=== PATIENT | female | born 1985 | race Caucasian/White ===

== ENCOUNTER → 2017-07-03 | Outpatient (CLI) | payer BC | END | disposition home or self-care (01) | LOC: LABWHC1 12:13 | PROVIDERS: ATTEND Obstetrics & Gynecology | DX: O03.9 Complete or unspecified spontaneous abortion without complication (principal) | CPT/HCPCS: 36415; 84702 ==

== ENCOUNTER → 2017-08-29 | Outpatient (CLI) | payer BC | END | disposition home or self-care (01) | LOC: LABWHC1 17:21 | PROVIDERS: ATTEND Obstetrics & Gynecology | DX: N92.6 Irregular menstruation, unspecified (principal) | CPT/HCPCS: 36415; 84702 ==

== ENCOUNTER → 2017-09-25 | Outpatient (CLI) | payer BC | END | disposition home or self-care (01) | LOC: LABWHC1 11:16 | PROVIDERS: ATTEND Obstetrics & Gynecology | DX: Z34.80 Encounter for supervision of other normal pregnancy, unspecified trimester (principal); Z3A.00 Weeks of gestation of pregnancy not specified | CPT/HCPCS: 36415; 84702 ==

== ENCOUNTER → 2017-09-27 | Outpatient (CLI) | payer BC | END | disposition home or self-care (01) | LOC: LABWHC1 10:20 | PROVIDERS: ATTEND Obstetrics & Gynecology | DX: Z34.80 Encounter for supervision of other normal pregnancy, unspecified trimester (principal); Z3A.00 Weeks of gestation of pregnancy not specified | CPT/HCPCS: 36415; 84702 ==

== ENCOUNTER → 2017-10-01 | Outpatient (CLI) | payer BC | LOC: LABWHC1 09:42 | PROVIDERS: ATTEND Obstetrics & Gynecology | DX: Z34.80 Encounter for supervision of other normal pregnancy, unspecified trimester (principal) | CPT/HCPCS: 36415; 84702 ==

== ENCOUNTER → 2017-11-19 | Outpatient (CLI) | payer BC ==
[2017-11-19 11:16] LABS: HCT 42.9 % (34.0-46.0); HGB 14.5 gm/dL (11.4-16.0); MCH 30.4 pg (25.0-35.0); MCHC 33.8 g/dL (31.0-37.0); MCV 89.8 fL (80.0-100.0); Mean Platelet Volume 7.4; Platelet Count 285 k/uL (150-450); RBC 4.78 m/uL (3.80-5.40); RDW 12.1 % (11.5-15.5); WBC 11.7 k/uL (3.8-10.6)
[2017-11-19 11:34] LABS: T4, Free (Free Thyroxine) 0.9 ng/dL (0.78-2.19)
[2017-11-19 17:17] LABS: Progesterone 10.6 ng/mL; T3, Uptake 36 % (23-37)
[2017-11-19 17:42] LABS: Cardiolipin Ab IgG Interp NEGATIVE (NEGATIVE); Cardiolipin Ab IgM Interp NEGATIVE (NEGATIVE); Cardiolipin IgA Antibody 2.3 U/mL; Cardiolipin IgM Antibody 2.9 U/mL
[2017-11-19 18:31] LABS: Hemoglobin A1C 4.8 % (4.0-6.0)
[2017-11-20 13:34] LABS: APTT 43 Sec(s) (<43); Dilute Russell Viper Venom 42 Sec(s) (<44)
== END | disposition home or self-care (01) ==
LOC: LABWHC1 10:32
PROVIDERS: ATTEND Obstetrics & Gynecology
DX: N96 Recurrent pregnancy loss (principal)
CPT/HCPCS: 36415; 81241; 82947; 83036; 84144; 84439; 84443; 84479; 85027; 85613; 85730; 86038; 86146; 86147

== ENCOUNTER → 2017-11-26 | Outpatient (CLI) | payer BC | END | disposition home or self-care (01) | LOC: LABWHC1 10:40 | PROVIDERS: ATTEND Obstetrics & Gynecology | DX: Z34.80 Encounter for supervision of other normal pregnancy, unspecified trimester (principal) | CPT/HCPCS: 36415; 84702 ==

== ENCOUNTER → 2017-11-28 | Outpatient (CLI) | payer BC | END | disposition home or self-care (01) | LOC: LABWHC1 15:21 | PROVIDERS: ATTEND Obstetrics & Gynecology | DX: Z34.80 Encounter for supervision of other normal pregnancy, unspecified trimester (principal) | CPT/HCPCS: 36415; 84702 ==

== ENCOUNTER → 2017-12-11 | Outpatient (CLI) | payer BC ==
--- NOTE | 2017-12-11 10:52 | US ---
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 : 9 Para:4 AB:5. 5 miscarriages within the las t 8 months per patient. Miscarriage last week per patient. TECHNIQUE: . Transvaginal sonographic images of the pelvis were acquired. Date of LMP: Unknown EXAM MEASUREMENTS: Uterus: 10.0 x 4.3 x 5.1 cm Endometrial Stripe: 1.1 cm Right Ovary: 2.8 x 1.7 x 2.7 cm Left Ovary: 4.1 x 2.1 x 3.8 cm 1. Uterus: Anteverted wnl 2. Endometrium: wnl 3. Right Ovary: wnl 4. Left Ovary: Follicle visualized measuring 1.6 x 1.6 x 1.8 cm 5. Bilateral Adnexa: wnl 6. Posterior cul-de-sac: wnl IMPRESSION: 1. Probable functional left ovarian cyst. Consider follow-up study in 6 weeks if felt clinically missy cated.
== END | disposition home or self-care (01) ==
LOC: RADUSWWP 10:05
PROVIDERS: ATTEND Obstetrics & Gynecology
DX: Z09 Encounter for follow-up examination after completed treatment for conditions other than malignant neoplasm (principal); Z84.89 Family history of other specified conditions
CPT/HCPCS: 76830

== ENCOUNTER → 2017-12-26 | Outpatient (CLI) | payer BC | END | disposition home or self-care (01) | LOC: LABWHC1 15:28 | PROVIDERS: ATTEND Obstetrics & Gynecology | DX: Z34.81 Encounter for supervision of other normal pregnancy, first trimester (principal) | CPT/HCPCS: 36415; 84702 ==

== ENCOUNTER → 2017-12-28 | Outpatient (CLI) | payer BC | END | disposition home or self-care (01) | LOC: LABWHC1 11:12 | PROVIDERS: ATTEND Obstetrics & Gynecology | DX: Z34.81 Encounter for supervision of other normal pregnancy, first trimester (principal); Z3A.00 Weeks of gestation of pregnancy not specified | CPT/HCPCS: 36415; 84702 ==

== ENCOUNTER → 2018-01-14 | Outpatient (CLI) | payer BC | LOC: LABWHC1 17:06 | PROVIDERS: ATTEND Obstetrics & Gynecology | DX: Z34.80 Encounter for supervision of other normal pregnancy, unspecified trimester (principal); Z3A.00 Weeks of gestation of pregnancy not specified | CPT/HCPCS: 36415; 84702 ==

== ENCOUNTER → 2018-04-15 | Outpatient (CLI) | payer BC | END | disposition home or self-care (01) | LOC: LABWHC1 10:19 | PROVIDERS: ATTEND Obstetrics & Gynecology | DX: Z34.80 Encounter for supervision of other normal pregnancy, unspecified trimester (principal) | CPT/HCPCS: 36415; 84702 ==

== ENCOUNTER → 2018-04-17 | Outpatient (CLI) | payer BC | LOC: LABWHC1 09:59 | PROVIDERS: ATTEND Obstetrics & Gynecology | DX: O26.819 Pregnancy related exhaustion and fatigue, unspecified trimester (principal); Z3A.00 Weeks of gestation of pregnancy not specified | CPT/HCPCS: 36415; 84702 ==

== ENCOUNTER → 2018-05-01 | Outpatient (CLI) | payer BC | END | disposition home or self-care (01) | LOC: LABWHC1 16:16 | PROVIDERS: ATTEND Obstetrics & Gynecology | DX: O02.1 Missed abortion (principal); Z3A.00 Weeks of gestation of pregnancy not specified | CPT/HCPCS: 36415; 84702 ==

== ENCOUNTER → 2018-05-08 | Outpatient (CLI) | payer BC | END | disposition home or self-care (01) | LOC: LABWHC1 09:54 | PROVIDERS: ATTEND Obstetrics & Gynecology | DX: O03.9 Complete or unspecified spontaneous abortion without complication (principal) | CPT/HCPCS: 36415; 84702 ==

== ENCOUNTER → 2018-05-15 | Outpatient (CLI) | payer BC | END | disposition home or self-care (01) | LOC: LABWHC1 13:09 | PROVIDERS: ATTEND Obstetrics & Gynecology | DX: O03.9 Complete or unspecified spontaneous abortion without complication (principal) | CPT/HCPCS: 36415; 84702 ==

== ENCOUNTER → 2018-07-05 | Outpatient (CLI) | payer BC ==
[2018-07-05 20:04] LABS: Hemoglobin A1C 4.9 % (4.0-6.0)
[2018-07-05 20:18] LABS: ALT 29 U/L (8-44); AST 31 U/L (13-35); Glucose 91 mg/dL (70-110)
[2018-07-05 20:21] LABS: Thyroid Peroxidase Antibodies 31.3 U/mL (0.0-60.0); Vitamin D 25 Hydroxy 17.6 ng/mL (30.0-100.0)
[2018-07-05 20:27] LABS: HCG,Quantitative Serum <2.0 mIU/mL
[2018-07-05 20:32] LABS: Insulin Level 13.7 mIU/mL (3.0-25.0)
[2018-07-05 21:01] LABS: Cardiolipin Ab IgG Interp NEGATIVE (NEGATIVE); Cardiolipin Ab IgM Interp NEGATIVE (NEGATIVE); Cardiolipin IgA Antibody 2.4 U/mL
[2018-07-08 04:04] LABS: Varicella IgM Antibody 0.26 INDEX (<=0.90)
[2018-07-08 11:11] LABS: APTT 40 Sec(s) (<43); Anti-Thrombin III Antigen 117 % (80 - 120); Dilute Russell Viper Venom 38 Sec(s) (<44); Protein S Antigen 100 % (50 - 140)
[2018-07-08 17:29] LABS: Anti-Mullerian Hormone 3.99 ng/mL (0.36 - 10.07)
[2018-07-09 01:38] LABS: Testosterone, Free, LC/MS/MS 2.5 pg/mL (0.2-5.0); Testosterone, Total, LC/MS/MS 21 ng/dL (2-45)
[2018-07-09 08:46] LABS: Protein C Antigen 145 % (72-160)
[2018-07-09 11:41] LABS: Act Protein C Resist Interp NEGATIVE; Activated Protein C Resistance 5.84 (1.60-4.90); Anti-Thrombin III Activity 116 % (79-109); Protein C (Activity) 143 % (71-138)
== END | disposition home or self-care (01) ==
LOC: LABWHC1 10:01
PROVIDERS: ATTEND Physician Assistant
DX: N96 Recurrent pregnancy loss (principal)
CPT/HCPCS: 36415; 81240; 81241; 81291; 82040; 82306; 82397; 82670; 82947; 83001; 83002; 83036; 83090; 83525; 84146; 84270; 84403; 84439; 84443; 84450; 84460; 84481; 84702; 85300; 85301; 85302; 85303; 85305; 85306; 85307; 85613; 85730; 86146; 86147; 86376; 86762; 86787; 86800; 86850; 86900; 86901

== ENCOUNTER → 2018-08-26 | Outpatient (CLI) | payer BC | LOC: LABWHC1 15:09 | PROVIDERS: ATTEND Obstetrics & Gynecology Reproductive Endocrinology | DX: N97.9 Female infertility, unspecified (principal) | CPT/HCPCS: 36415; 84144 ==

== ENCOUNTER → 2018-08-28 | Outpatient (CLI) | payer BC | LOC: LABWHC1 10:23 | PROVIDERS: ATTEND Obstetrics & Gynecology Reproductive Endocrinology | DX: Z32.00 Encounter for pregnancy test, result unknown (principal) | CPT/HCPCS: 36415; 84702 ==

== ENCOUNTER 2019-02-19 14:17 | Outpatient (CLI) | payer BC ==
[2019-02-19 14:47] LABS: Glucose,Whole Blood 91 mg/dL (75-99)
[2019-02-19 15:12] VITALS: BP 126/58; PULSE 101; RESP 18; TEMP 98.3
--- NOTE | 2019-03-18 08:22 | P.MSEPDOC ---
Presenting Problems - Arrival Data Date of Arrival on Unit: 02/19/19 Time of Arrival on Unit: 14:30 Mode of Transport: Ambulatory - Complaint OB-Reason for Admission/Chief Complaint: Other Comment: pelvic pain, white discharge, decreased movement Medical History - Information : 5 Para: 4 Term: 4 : 0 Abortions: Spontaneous or Elective: 0 Number of Living Children: 4 - Gestational Age Gestational Age by IRIS (wks/days): 28 Weeks and 4 Days - History Complications: GDM, Smoker Comment: on insulin at dinner and bedtime Review of Systems - Review of Systems Constitutional: No problems Breast: No problems ENT: No problems Cardiovascular: No problems Respiratory: No problems Gastrointestinal: No problems Genitourinary: No problems Musculoskeletal: No problems Neurological: No problems Skin: No problems Vital Signs - Temperature Temperature: 98.3 F Temperature Source: Oral - Pulse Right Sitting Brachial Pulse Rate: 101 Pulse Assessment Method: Automatic Cuff - Respirations Respiratory Rate: 18 Oxygen Delivery Method: Room Air O2 Sat by Pulse Oximetry: 95 - Blood Pressure Right Arm Sitting Blood Pressure: 126/58 Blood Pressure Mean: 80 Blood Pressure Source: Automatic Cuff Medical Screen Scoring (Pre) - Cervical Exam Dilation: 0 cm = 0 - Uterine Contractions Frequency: N/A Duration: N/A Intensity: N/A - Maternal Vital Signs Maternal Temperature: N/A Maternal Blood Pressure: N/A Signs of Preeclampsia: N/A Maternal Respirations: N/A - Maternal Trauma Maternal Trauma: N/A - Assessment - Baby A Baseline FHR: 135 Heart Rate - NICHD Category: Category I (Normal) = 0 NST: Reactive Position: N/A Station: N/A - Total Score - Baby A Total Score - Baby A: 0 - Total Score - Baby B Total Score - Baby B: 0 - Total Score - Baby C Total Score - Baby C: 0 - Level of Risk - Baby A Level of Risk - Baby A: Low (0-5) - Level of Risk - Baby B Level of Risk - Baby B: Low (0-5) - Level of Risk - Baby C Level of Risk - Baby C: Low (0-5) Physician Notification (Pre) - Physician Notified Physician Notified Date: 02/19/19 Physician Notified Time: 15:12 Physician/Practitioner Notifed:: Dr Nielsen Spoke With: Dr Nielsen - Notification Comment Comment: reactive NST, cx closed, + movement. Dc home. follow up with dr akers/luis carlos as scheduled. Disposition - Disposition OB Disposition: Discharge to home Discharge Date: 02/19/19 Discharge Time: 15:12 I agree with the RN Medical Screening Exam: Yes Risk & Benefit of care provided described in d/c instruction: Yes Diagnosis: RELATED CONDITIONS, UNSPECIFIED, THIRD TRIMESTER
== END 2019-02-19 15:13 | disposition home or self-care (01) ==
LOC: FBPOP 14:17
PROVIDERS: ATTEND Obstetrics & Gynecology
DX: O26.93 Pregnancy related conditions, unspecified, third trimester (principal); Z3A.28 28 weeks gestation of pregnancy
CPT/HCPCS: 59025; 99213

== ENCOUNTER 2019-04-06 18:17 | Outpatient (CLI) | payer BC ==
[2019-04-06 19:08] VITALS: BP 127/64; PULSE 113; RESP 18; TEMP 97.9
--- NOTE | 2019-04-07 06:26 | P.MSEPDOC ---
Presenting Problems - Arrival Data Date of Arrival on Unit: 04/06/19 Time of Arrival on Unit: 18:20 Mode of Transport: Ambulatory - Complaint OB-Reason for Admission/Chief Complaint: Possible Onset of Labor, Acute Nausea/Vomiting Medical History - Information : 12 Para: 4 Term: 4 : 0 Abortions: Spontaneous or Elective: 7 Number of Living Children: 4 - Gestational Age Gestational Age by IRIS (wks/days): 35 Weeks and 1 Days - History Complications: GDM Review of Systems - Review of Systems Constitutional: No problems Breast: No problems ENT: No problems Cardiovascular: No problems Respiratory: No problems Gastrointestinal: No problems Genitourinary: No problems Musculoskeletal: No problems Neurological: No problems Skin: No problems Vital Signs - Temperature Temperature: 97.9 F Temperature Source: Temporal Artery Scan - Pulse Right Brachial Pulse Rate: 113 Pulse Assessment Method: Automatic Cuff - Respirations Respiratory Rate: 18 Oxygen Delivery Method: Room Air O2 Sat by Pulse Oximetry: 98 - Blood Pressure Right Arm Sitting Blood Pressure: 127/64 Blood Pressure Mean: 85 Blood Pressure Source: Automatic Cuff Medical Screen Scoring (Pre) - Cervical Exam Dilation: 1-3 cm = 1 Membranes: Intact - Uterine Contractions Frequency: < 36 weeks = 6 Duration: > 40 seconds = 2 - Maternal Vital Signs Maternal Temperature: N/A Maternal Blood Pressure: N/A Signs of Preeclampsia: N/A Maternal Respirations: N/A - Maternal Trauma Maternal Trauma: N/A - Assessment - Baby A Baseline FHR: 155 Heart Rate - NICHD Category: Category I (Normal) = 0 NST: Reactive Position: N/A Station: N/A - Total Score - Baby A Total Score - Baby A: 9 - Total Score - Baby B Total Score - Baby B: 9 - Total Score - Baby C Total Score - Baby C: 9 - Level of Risk - Baby A Level of Risk - Baby A: Medium (6-9) - Level of Risk - Baby B Level of Risk - Baby B: Medium (6-9) - Level of Risk - Baby C Level of Risk - Baby C: Medium (6-9) Physician Notification (Pre) - Physician Notified Physician Notified Date: 04/06/19 Physician Notified Time: 18:40 - Notification Comment Comment: educated on increasing fluids and advance diet as tolerated. bland diet. discussed. labour signs, warning signs discussed. pt verbalizes understanding Disposition - Disposition OB Disposition: Triage, Discharge to home, Written follow up instructions reviewed Discharge Date: 04/06/19 Discharge Time: 19:00 I agree with the RN Medical Screening Exam: Yes Risk & Benefit of care provided described in d/c instruction: Yes Diagnosis: DEHYDRATION
== END 2019-04-06 19:00 | disposition home or self-care (01) ==
LOC: FBPOP 18:17
PROVIDERS: ATTEND Obstetrics & Gynecology
DX: O99.283 Endocrine, nutritional and metabolic diseases complicating pregnancy, third trimester (principal); O24.419 Gestational diabetes mellitus in pregnancy, unspecified control; Z3A.35 35 weeks gestation of pregnancy
CPT/HCPCS: 59025; 99213

== ENCOUNTER 2019-04-12 10:28 | Outpatient (CLI) | payer BC ==
[2019-04-12 11:29] LABS: Basophils # (A) 0.1 k/uL (0-0.2); Basophils % (A) 1 %; Eosinophils # (A) 0.5 k/uL (0-0.7); Eosinophils % (A) 4 %; HCT 40.8 % (34.0-46.0); HGB 14.4 gm/dL (11.4-16.0); Lymphocytes # (A) 2.2 k/uL (1.0-4.8); Lymphocytes % (A) 15 %; MCHC 35.3 g/dL (31.0-37.0); MCV 90.6 fL (80.0-100.0); Mean Platelet Volume 8.6; Monocytes # (A) 1.1 k/uL (0-1.0); Monocytes % (A) 8 %; Neutrophils # (A) 10.4 k/uL (1.3-7.7); Neutrophils % (A) 71 %; Platelet Count 262 k/uL (150-450); RBC 4.51 m/uL (3.80-5.40); RDW 13.3 % (11.5-15.5); WBC 14.5 k/uL (3.8-10.6)
[2019-04-12 11:47] LABS: ALT 103 U/L (4-34); AST 69 U/L (14-36)
[2019-04-12 12:04] LABS: Glucose,Whole Blood 92 mg/dL (75-99)
[2019-04-12 12:40] VITALS: BP 132/76; PULSE 100; RESP 18; TEMP 97.2
--- NOTE | 2019-04-13 10:09 | P.MSEPDOC ---
Presenting Problems - Arrival Data Date of Arrival on Unit: 04/12/19 Time of Arrival on Unit: 10:28 Mode of Transport: Wheelchair - Complaint OB-Reason for Admission/Chief Complaint: Other Medical History - Information : 12 Para: 4 Term: 4 : 0 Abortions: Spontaneous or Elective: 7 Number of Living Children: 4 - Gestational Age Gestational Age by IRIS (wks/days): 36 Weeks and 0 Days Review of Systems - Review of Systems Constitutional: No problems Breast: No problems ENT: No problems Cardiovascular: No problems Respiratory: No problems Gastrointestinal: No problems Genitourinary: No problems Musculoskeletal: No problems Neurological: No problems Skin: No problems Vital Signs - Temperature Temperature: 97.2 F Temperature Source: Temporal Artery Scan - Pulse Right Brachial Pulse Rate: 100 Pulse Assessment Method: Automatic Cuff - Respirations Respiratory Rate: 18 Oxygen Delivery Method: Room Air O2 Sat by Pulse Oximetry: 99 - Blood Pressure Right Arm Blood Pressure: 132/76 Blood Pressure Mean: 94 Blood Pressure Source: Automatic Cuff Medical Screen Scoring (Pre) - Cervical Exam Dilation: Exam Deferred Effacement: Exam Deferred Membranes: Intact - Uterine Contractions Frequency: > 5 minutes apart = 1 Duration: > 40 seconds = 2 Intensity: N/A - Maternal Vital Signs Maternal Temperature: N/A Maternal Blood Pressure: N/A Signs of Preeclampsia: N/A Maternal Respirations: N/A - Maternal Trauma Maternal Trauma: N/A - Assessment - Baby A Baseline FHR: 140 Heart Rate - NICHD Category: Category I (Normal) = 0 NST: Reactive Position: N/A Station: N/A - Total Score - Baby A Total Score - Baby A: 3 - Total Score - Baby B Total Score - Baby B: 3 - Total Score - Baby C Total Score - Baby C: 3 - Level of Risk - Baby A Level of Risk - Baby A: Low (0-5) - Level of Risk - Baby B Level of Risk - Baby B: Low (0-5) - Level of Risk - Baby C Level of Risk - Baby C: Low (0-5) Physician Notification (Pre) - Physician Notified Physician Notified Date: 04/12/19 Physician Notified Time: 11:55 - Notification Comment Comment: check blood sugar and then pt to be discharged after ast, alt and, and cbc results given to Dr. Funez, she may take benadryl otc for itching, has mfm appt on sunday and Dr. Garza on , blood sugar was 92, labs printed off and given to pt to take to MFM on Sunday Disposition - Disposition OB Disposition: Triage, Discharge to home, Written follow up instructions reviewed Discharge Date: 04/12/19 Discharge Time: 12:06 I agree with the RN Medical Screening Exam: No Physician's MSE Comment: Pt came in for itching, especially hands and feet. She did have labs drawn but some wont come back for a few days. I do think she probably has cholestasis. NST was reactive. She is going to have an appt Sunday with MFM where she will have another NST and BP check. She will likely need to be delivered next week when she is 37 weeks. Risk & Benefit of care provided described in d/c instruction: Yes Diagnosis: TOXIC LIVER DISEASE WITH CHOLESTASIS
== END 2019-04-12 12:06 | disposition home or self-care (01) ==
LOC: FBPOP 10:28
PROVIDERS: ATTEND Obstetrics & Gynecology
DX: O26.613 Liver and biliary tract disorders in pregnancy, third trimester (principal); K71.0 Toxic liver disease with cholestasis; Z3A.36 36 weeks gestation of pregnancy
CPT/HCPCS: 59025; 82239; 84450; 84460; 85025; 99213

== ENCOUNTER 2019-04-16 05:35 | Inpatient (IN) | payer BC ==
--- NOTE | 2019-04-15 16:59 | P.HPOB ---
History of Present Illness H&P Date: 04/15/19 Chief Complaint: Cholestasis of . This patient is a pleasant 33 yr female EDC 05/10/2019 estimated gestational age 36 4/7 weeks who presents for delivery secondary to severe cholestasis of with elevated liver function enzymes. Janene presented to L&D on Sunday with complaints of itching. Evaluation showed elevated AST/ALT. She saw MFM on Sunday for her GDM and they confirmed diagnosis of cholestasis. Recommendations are to proceed with delivery secondary to significant increased risk of demise. Patients is also complicated by insulin dependent GDM. 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 is also complicated by tobacco use. Review of Systems Constitutional: Reports as per HPI Genitourinary: Reports Menstruation: Reports amenorrhea Integumentary: Reports pruritus Past Medical History Additional Past Medical History / Comment(s): Gestational diabetes, cholestasis of . MTHFR gene mutation History of Any Multi-Drug Resistant Organisms: None Reported Past Surgical History: No Surgical Hx Reported Past Anesthesia/Blood Transfusion Reactions: No Reported Reaction Past Psychological History: No Psychological Hx Reported Smoking Status: Current every day smoker Past Alcohol Use History: None Reported Past Drug Use History: None Reported - Past Family History Mother Family Medical History: No Reported History Medications and Allergies Home Medications Medication Instructions Recorded Confirmed Type Pnv,Calcium 72/Iron/Folic Acid 1 each PO DAILY 08/24/15 04/12/19 History [ Plus Tablet] Insulin Aspart [NovoLOG] 24 units SQ AC-SUPPER 02/19/19 04/12/19 History Insulin NPH Human Isophane 12 unit SQ RT-HS 02/19/19 04/12/19 History [NovoLIN N] Allergies Allergy/AdvReac Type Severity Reaction Status Date / Time nickel Allergy Rash/Hives Verified 04/12/19 10:34 sulfamethoxazole Allergy Rash/Hives Verified 04/12/19 10:34 [From Bactrim] trimethoprim [From Bactrim] Allergy Rash/Hives Verified 04/12/19 10:34 Exam - OBG Physical Exam Abdomen: bowel sounds normal, no diffuse tenderness, no bruit present, no guarding noted, no hepatomegaly, no splenomegaly, no mass Vulva: both: normal Vagina: normal moisture Cervix: Cx 2/th / soft Uterus: enlarged (Fundal height is 36 cm) Results Labs: O positive, Rubella Immune, HepB-RPR negative, glucola s143 with abnormal 3hr GTT. Ultrasound at [facility] yesterday showed Vtx with EFW 6#1oz. GBS negative. Assessment and Plan Assessment: This is a pleasant 33 female 36 4/7 weeks with gestational diabetes, severe cholestasis with elevated LFTs. Plan is to proceed with induction and delivery secondary to significant risk of stillborn with continuation of the . Patient and I have discussed this in detail and she understands risks of immaturity, etc. Will given antibiotics since <36wks. Plan induction with Pitocin per protocol. (1) 36 to 37 weeks gestation of Status: Acute Code(s): [id number] - SNOMED Code(s): 653201640 (2) Cholestasis during Status: Acute Code(s): O26.619 - LIVER AND BILIARY TRACT DISORD IN , UNSP TRIMESTER; K83.1 - OBSTRUCTION OF BILE DUCT SNOMED Code(s): 776934662 (3) Insulin dependent gestational diabetes mellitus (GDM), antepartum Status: Acute Code(s): O24.419 - GESTATIONAL DIABETES MELLITUS IN , UNSP CONTROL; Z79.4 - SITE LEADER (CURRENT) USE OF INSULIN SNOMED Code(s): 75069123
[2019-04-16] MEDS ORDERED: AMPICILLIN 2,000 MG in SODIUM CHLORIDE 0.9% 100 ML IVPB STA (06:20)
[2019-04-16] MEDS ORDERED: OXYTOCIN 10 UNIT/ML 1 ML VIAL IM PRN (06:20)
[2019-04-16] MEDS ORDERED: METHYLERGONOVINE 0.2 MG/ML 1 ML AMP IM PRN (06:20)
[2019-04-16] MEDS ORDERED: LACTATED RINGERS 1,000 ML IV SCH (06:20)
[2019-04-16] MEDS ORDERED: CARBOPROST TROMETHAMINE 250 MCG/ML 1 ML AMP IM PRN (06:20)
[2019-04-16] MEDS ORDERED: LIDOCAINE 0.5% (PF) 5 MG/ML (50 ML SDV) SQ PRN (06:20)
[2019-04-16] MEDS ORDERED: TERBUTALINE 1 MG/ML VIAL SQ PRN (06:20)
[2019-04-16] MEDS ORDERED: OXYTOCIN 30 UNITS/500 ML NS 30 UNIT in SALINE 1 500ML.BAG IV SCH (06:20)
[2019-04-16 06:23] LABS: Glucose,Whole Blood 95 mg/dL (75-99)
[2019-04-16 06:33] LABS: Basophils # (A) 0.1 k/uL (0-0.2); Basophils % (A) 1 %; Eosinophils # (A) 0.6 k/uL (0-0.7); Eosinophils % (A) 4 %; HCT 39.1 % (34.0-46.0); HGB 13.9 gm/dL (11.4-16.0); Lymphocytes # (A) 3.6 k/uL (1.0-4.8); Lymphocytes % (A) 24 %; MCH 32.9 pg (25.0-35.0); MCHC 35.6 g/dL (31.0-37.0); MCV 92.4 fL (80.0-100.0); Mean Platelet Volume 9.1; Monocytes # (A) 0.9 k/uL (0-1.0); Monocytes % (A) 6 %; Neutrophils # (A) 9.6 k/uL (1.3-7.7); Neutrophils % (A) 64 %; Platelet Count 269 k/uL (150-450); RBC 4.23 m/uL (3.80-5.40); RDW 13.5 % (11.5-15.5); WBC 15.1 k/uL (3.8-10.6)
[2019-04-16 06:35] LABS: Albumin 3.4 g/dL (3.5-5.0); Bilirubin, Delta 0.3 mg/dL (0.0-0.2); Bilirubin,Unconjugated 0.3 mg/dL (0.0-1.1); Total Bilirubin 0.6 mg/dL (0.2-1.3)
[2019-04-16 07:29] LABS: Glucose,Whole Blood 104 mg/dL (75-99)
[2019-04-16 08:19] LABS: Glucose,Whole Blood 95 mg/dL (75-99)
[2019-04-16] MEDS ORDERED: BUTORPHANOL 1 MG/ML 1 ML VIAL IV PRN (09:35)
[2019-04-16 09:41] LABS: Glucose,Whole Blood 91 mg/dL (75-99)
[2019-04-16 10:32] LABS: Glucose,Whole Blood 95 mg/dL (75-99)
[2019-04-16] MEDS ORDERED: AMPICILLIN 1,000 MG in SODIUM CHLORIDE 0.9% 50 ML IVPB SCH (11:00)
[2019-04-16] MEDS ORDERED: BENZOCAINE/MENTHOL SPRAY 1 GM/SPRAY AEROSOL TOPICAL PRN (11:30)
[2019-04-16] MEDS ORDERED: diphenhydrAMINE 25 MG CAP PO PRN (11:30)
[2019-04-16] MEDS ORDERED: WITCH HAZEL 1 EACH MED..PAD TOPICAL PRN (11:30)
[2019-04-16] MEDS ORDERED: ZOLPIDEM 5 MG TAB PO PRN (11:30)
[2019-04-16] MEDS ORDERED: SIMETHICONE 80 MG CHEWABLE PO PRN (11:30)
[2019-04-16] MEDS ORDERED: diphenhydrAMINE 50 MG/ML 1 ML VIAL IVP PRN (11:30)
[2019-04-16] MEDS ORDERED: LANOLIN CREAM 5 GM TUBE TOPICAL PRN (11:30)
[2019-04-16] MEDS ORDERED: OXYTOCIN 20 UNITS/1000 ML NS 1,000 ML IV SCH (11:30)
[2019-04-16] MEDS ORDERED: HYDROCORTISONE 2.5% RECTAL CREAM 30 GM TUBE RECTAL PRN (11:30)
[2019-04-16] MEDS ORDERED: BISACODYL 10 MG SUPP RECTAL PRN (11:30)
[2019-04-16 11:40] LABS: Hemoglobin A1C 4.6 % (4.0-6.0)
[2019-04-16] MEDS: SENNOSIDES-DOCUSATE SODIUM 1 EACH TAB PO SCH ×2 (11:42→20:14)
[2019-04-16] MEDS: ACETAMINOPHEN TAB 325 MG TAB PO PRN ×2 (12:21→18:40)
--- NOTE | 2019-04-16 12:35 | P.PROBDLV ---
Vaginal Delivery Note - . Vaginal Delivery Note: Normal vaginal delivery viable male infant Apgars 9 and 9 delivery time is 1114 hrs. Please seedictated H&P for intimate details of this patient's admission. Brief summary this is a pleasant 33-year-old 12 para 4 female 36-4/7 weeks gestation admitted to labor and delivery for induction of labor secondary to cholestasis and elevated liver function tests. I admission patient is 2-3 cm dilated is artificial rupture membranes for clear fluid. Labor is induced with Pitocin per protocol. I did give her IV antibiotics although she had a negative group B strep due to her being less than 37 weeks. Patient's labor progresses quickly and she does not request anything for pain control. Patient gets to complete and with 2 pushes pushes the head to the perineum. Posterior perineum was supported and we have controlled delivery of the infant's head over the intact perineum. Mouth and nares are bulb suctioned. There is a nuchal cord 2 which is reduced. We then have deliver the anterior and posterior shoulder and rest this infant's body. This is a vigorous viable male infant Apgars are 9 and 9 delivery time is 1114 hrs. After delivery of the the cord is allowed to quit pulsating is doubly clamped and cut appears to be trivascular. The is then laid in the mother's abdomen. Placenta spontaneously delivered intact. Inspection of perineum shows no lacerations no repair. and mother stable delivery room. No complications. All counts are correct 3.
[2019-04-16] MEDS: IBUPROFEN 600 MG TAB PO PRN (23:21)
[2019-04-17] MEDS: SENNOSIDES-DOCUSATE SODIUM 1 EACH TAB PO SCH (03:55)
--- NOTE | 2019-04-17 06:02 | P.PNOBGVD ---
Subjective - Subjective Patient reports: Reports appetite normal, Reports voiding normally, Reports pain well controlled, Reports ambulating normally : doing well Objective - Latest Vital Signs Latest vital signs: Vital Signs Temp Pulse Resp BP 04/16/19 23:27 97.8 F 62 18 138/62 04/16/19 20:15 98.0 F 68 15 128/62 04/16/19 15:56 98.0 F 72 18 113/86 04/16/19 13:30 98.2 F 89 18 141/60 04/16/19 13:00 98.2 F 71 18 121/69 04/16/19 12:30 75 123/70 04/16/19 12:15 98.1 F 79 18 132/76 04/16/19 12:00 80 130/70 04/16/19 11:45 98.1 F 83 18 131/63 04/16/19 11:30 98.6 F 89 18 113/66 Intake and Output 04/16/19 04/16/19 04/17/19 14:59 22:59 06:59 Other: # Voids 1 - Exam Lungs: bilateral: normal Chest: Normal S1, Normal S2 Extremities: Present: normal Abdomen: Present: normal appearance, soft Uterus: Present: normal, firm - Labs Labs: Abnormal Lab Results - Last 24 Hours (Table) 04/16/19 04/16/19 04/16/19 Range/Units 05:53 05:53 07:28 WBC 15.1 H (3.8-10.6) k/uL Neutrophils # 9.6 H (1.3-7.7) k/uL POC Glucose (mg/dL) 104 H (75-99) mg/dL Delta Bilirubin 0.3 H (0.0-0.2) mg/dL AST 65 H (14-36) U/L ALT 98 H (4-34) U/L Alkaline Phosphatase 140 H (38-126) U/L Total Protein 6.0 L (6.3-8.2) g/dL Albumin 3.4 L (3.5-5.0) g/dL Assessment and Plan Assessment: day #1. Patient is resting without complaints. Wishes to go home today. Vital signs are stable she is afebrile. Uterus is firm nontender and she is having normal lochia. My impression this is a normal course. Plan is continue routine care and discharge home later today. (1) 36 to 37 weeks gestation of Current Visit: No Status: Acute Code(s): [id number] - SNOMED Code(s): 157581914 (2) Cholestasis during Current Visit: No Status: Acute Code(s): O26.619 - LIVER AND BILIARY TRACT DISORD IN , UNSP TRIMESTER; K83.1 - OBSTRUCTION OF BILE DUCT SNOMED Code(s): 845783096 (3) Insulin dependent gestational diabetes mellitus (GDM), antepartum Current Visit: No Status: Acute Code(s): O24.419 - GESTATIONAL DIABETES MELLITUS IN , UNSP CONTROL; Z79.4 - DETENTION (CURRENT) USE OF INSULIN SNOMED Code(s): 92092089
--- NOTE | 2019-04-17 06:06 | P.DS ---
Providers Date of admission: 04/16/19 05:35 Expected date of discharge: 04/17/19 Attending physician: Woo Garza Primary care physician: Stated None - Discharge Diagnosis(es) (1) 36 to 37 weeks gestation of Current Visit: No Status: Acute (2) Cholestasis during Current Visit: No Status: Acute (3) Insulin dependent gestational diabetes mellitus (GDM), antepartum Current Visit: No Status: Acute Hospital Course: Please see dictated H&P for intimate details of this patient's admission. Brief summary this is a pleasant 33-year-old 12 para 4 female 36-4/7 weeks gestation admitted to labor and delivery for severe cholestasis and elevated liver function tests. Patient is admitted undergoes uncomplicated induction of labor quickly goes on have a vaginal delivery viable male . Please dictated delivery note. patient's felt be stable for discharge home follow up with me in 6 weeks. Recheck her liver function tests as an outpatient. Procedures: Induction of labor normal vaginal delivery Patient Condition at Discharge: Good Plan - Discharge Summary New Discharge Prescriptions: New Ibuprofen [Motrin] 600 mg PO Q6HR PRN #30 tab PRN Reason: Mild Pain Or Fever >= 100.5 No Action Pnv,Calcium 72/Iron/Folic Acid [ Plus Tablet] 1 each PO DAILY Insulin Aspart [NovoLOG] 24 units SQ AC-SUPPER Insulin NPH Human Isophane [NovoLIN N] 12 unit SQ RT-HS Discharge Medication List Pnv,Calcium 72/Iron/Folic Acid [ Plus Tablet] 1 each PO DAILY 08/24/15 [History] Insulin Aspart [NovoLOG] 24 units SQ AC-SUPPER 02/19/19 [History] Insulin NPH Human Isophane [NovoLIN N] 12 unit SQ RT-HS 02/19/19 [History] Ibuprofen [Motrin] 600 mg PO Q6HR PRN #30 tab 04/17/19 [Rx] Follow up Appointment(s)/Referral(s): Woo Garza MD [STAFF PHYSICIAN] - 05/28/19 9:30 am Patient Instructions/Handouts: Vaginal Delivery (DC) Activity/Diet/Wound Care/Special Instructions: No intercourse or anything per vagina for 6 weeks. Please call if any fever, chills, excessive vaginal bleeding, and/or abdominal pain. Discharge Disposition: HOME SELF-CARE
[2019-04-17] MEDS: IBUPROFEN 600 MG TAB PO PRN (08:19)
[2019-04-17 10:25] VITALS: BP 114/64; PULSE 75; RESP 16; TEMP 97.9
== END 2019-04-17 12:45 | disposition home or self-care (01) | DRG 805 ==
LOC: 4FBP 05:35
PROVIDERS: ADMIT Obstetrics & Gynecology; ATTEND Obstetrics & Gynecology
PROC: 10E0XZZ Delivery of Products of Conception, External Approach (ICD-10-PCS; principal; 2019-04-16)
PROC: 10907ZC Drainage of Amniotic Fluid, Therapeutic from Products of Conception, Via Natural or Artificial Opening (ICD-10-PCS; 2019-04-16)
PROC: 3E033VJ Introduction of Other Hormone into Peripheral Vein, Percutaneous Approach (ICD-10-PCS; 2019-04-16)
DX: O26.62 Liver and biliary tract disorders in childbirth (principal); K83.1 Obstruction of bile duct; Z37.0 Single live birth; O69.81X0 Labor and delivery complicated by cord around neck, without compression, not applicable or unspecified; O99.334 Smoking (tobacco) complicating childbirth; F17.200 Nicotine dependence, unspecified, uncomplicated; Z3A.37 37 weeks gestation of pregnancy; Z79.4 Long term (current) use of insulin
CPT/HCPCS: 80076; 83036; 85025; 86850; 86900; 86901

== ENCOUNTER → 2019-06-27 | Outpatient (CLI) | payer OTHER ==
[2019-06-27 16:00] LABS: ALT 47 U/L (8-44); AST 29 U/L (13-35); Albumin/Globulin Ratio 2.33 (1.60-3.17); Alkaline Phosphatase 74 U/L (41-126); Bilirubin, Conjugated <0.20 mg/dL (0.20-0.40); Globulin 2.1 g/dL (1.6-3.3); Total Bilirubin 0.5 mg/dL (0.3-1.2)
[2019-06-27 16:52] LABS: Hemoglobin A1C 4.9 % (4.0-6.0)
== END | disposition home or self-care (01) ==
LOC: LABWHC1 10:34
PROVIDERS: ATTEND Obstetrics & Gynecology
DX: Z13.1 Encounter for screening for diabetes mellitus (principal)
CPT/HCPCS: 36415; 80076; 82306; 83036

== ENCOUNTER → 2019-07-08 | Outpatient (CLI) | payer OTHER | END | disposition home or self-care (01) | LOC: LABWHC1 12:08 | PROVIDERS: ATTEND Obstetrics & Gynecology | DX: N92.6 Irregular menstruation, unspecified (principal) | CPT/HCPCS: 36415; 84702 ==

== ENCOUNTER → 2020-07-29 | Outpatient (CLI) | payer OTHER ==
--- NOTE | 2020-07-29 12:46 | US ---
EXAMINATION TYPE: Transabdominal DATE OF EXAM: 07/29/2020 12:32 PM COMPARISON: NONE CLINICAL HISTORY: Z36 confirm dates. EXAM PERFORMED: Transabdominal (TA) EXAM MEASUREMENTS: GESTATIONAL AGE / DATING Physician Established: Not established Dates by LMP: (8 weeks/ 3 days) EDC: 03/07/21 Dates by First Scan: No Previous Dates by Current Scan for: ( 8 weeks/1 days) EDC: 03/09/21 MATERNAL ANATOMY Uterus: 15.1 x 8.1 x 7.0 cm Right Ovary: 3.7 x 2.6 x 2.5 cm Left Ovary: 3.6 x 3.2 x 2.2 cm Post CDS / Adnexa: wnl Presence of free fluid: no Presence of corpus luteal cyst: no Presence of subchorionic bleed: Superior to Gestational Sac = 1.3 x 1.1 x 1.1 cm GESTATION / SURVEY CRL: 1.8 (8 weeks/2 days) MSD: 2.9 (7 weeks/6 days) Yolk Sac (normal less than 6mm): Not well seen Heart Rate: 155 bpm Rhythm: Normal IUP: Viable IUP Date of LMP: 05/31/20 Beta HcG (if available): IMPRESSION: 1. Single intrauterine gestation estimated at 8 weeks 2 days gestation based on the crown-rump length . Cardiac activity measures 155 bpm. 2. A subchorionic hemorrhage may be adjacent to the gestational sac.
== END | disposition home or self-care (01) ==
LOC: RADUSWWP 12:08
PROVIDERS: ATTEND Obstetrics & Gynecology
DX: O20.8 Other hemorrhage in early pregnancy (principal); Z3A.08 8 weeks gestation of pregnancy
CPT/HCPCS: 76801

== ENCOUNTER 2020-09-29 08:33 | Emergency (ER) | payer OTHER ==
[2020-09-29 08:40] VITALS: BP 148/77; PULSE 118; RESP 18; TEMP 97.3
--- NOTE | 2020-09-29 09:21 | ED ---
Upper Extremity HPI - General Chief Complaint: Extremity Injury, Upper Stated Complaint: shoulder pain, left side numbness, 17wks preg Time Seen by Provider: 09/29/20 09:00 Source: patient Mode of arrival: wheelchair Limitations: no limitations - History of Present Illness Initial Comments: This a 35-year-old female presents emergency Department chief complaint left shoulder spasm, pain, arm tingling. Patient states started yesterday states that she started having a muscle spasm in her shoulder blade. Patient states it worse and she try some Tylenol and topical patch with no relief. Patient states that she wants to go the chiropractor states that she is currently 17 weeks color PCP advised to come emergency department. She has any chest pain shortness breath no upper or lower extremity weakness. She states it starts at the base of her neck over her trapezius region and shoulder region. Patient is right-hand dominant she states she carries her on her left side which may contribute to the symptoms. - Related Data Home Medications Medication Instructions Recorded Confirmed Pnv,Calcium 72/Iron/Folic Acid 1 each PO DAILY 08/24/15 04/16/19 [ Plus Tablet] Insulin Aspart [NovoLOG] 24 units SQ AC-SUPPER 02/19/19 04/16/19 Insulin NPH Human Isophane 12 unit SQ RT-HS 02/19/19 04/16/19 [NovoLIN N] Previous Rx's Medication Instructions Recorded Ibuprofen [Motrin] 600 mg PO Q6HR PRN #30 tab 04/17/19 Allergies Allergy/AdvReac Type Severity Reaction Status Date / Time insulin aspart Allergy Rash/Hives Verified 09/29/20 08:40 [From Novolog Mix 70-30 U-100 Insuln] insulin aspart protamine Allergy Rash/Hives Verified 09/29/20 08:40 human [From Novolog Mix 70-30 U-100 Insuln] nickel Allergy Rash/Hives Verified 09/29/20 08:40 sulfamethoxazole Allergy Rash/Hives Verified 09/29/20 08:40 [From Bactrim] Review of Systems ROS Statement: Those systems with pertinent positive or pertinent negative responses have been documented in the HPI. ROS Other: All systems not noted in ROS Statement are negative. Past Medical History Past Medical History: No Reported History Additional Past Medical History / Comment(s): Gestational diabetes, cholestasis of . MTHFR gene mutation History of Any Multi-Drug Resistant Organisms: None Reported Past Surgical History: No Surgical Hx Reported Past Anesthesia/Blood Transfusion Reactions: No Reported Reaction Past Psychological History: No Psychological Hx Reported Smoking Status: Current every day smoker Past Alcohol Use History: None Reported Past Drug Use History: None Reported - Past Family History Mother Family Medical History: No Reported History General Exam Limitations: no limitations General appearance: alert, in no apparent distress Head exam: Present: atraumatic, normocephalic, normal inspection Eye exam: Present: normal appearance, PERRL, EOMI. Absent: scleral icterus, conjunctival injection, periorbital swelling ENT exam: Present: normal exam, mucous membranes moist Neck exam: Present: normal inspection, tenderness (Tenderness of the left trapezius, left paraspinal region into the left scapular region is muscle spasm noted), full ROM. Absent: meningismus, lymphadenopathy Respiratory exam: Present: normal lung sounds bilaterally. Absent: respiratory distress, wheezes, rales, rhonchi, stridor, chest wall tenderness Cardiovascular Exam: Present: regular rate (Patient was not tachycardic on exam patient noted be tachycardic in triage.), normal rhythm, normal heart sounds. Absent: systolic murmur, diastolic murmur, rubs, gallop, clicks GI/Abdominal exam: Present: soft, normal bowel sounds, other (Appropriate size for gestational). Absent: distended, tenderness, guarding, rebound, rigid Extremities exam: Present: other (Upper extremity strength equal bilaterally with travel director strength equal 5/5, neurovascularly intact radial pulses bilaterally equal color equal warmth patient reports equal sensation lower extremity strength equal bilaterally neurovascular intact) Back exam: Present: full ROM. Absent: tenderness, muscle spasm, paraspinal tenderness, vertebral tenderness Neurological exam: Present: alert, oriented X3, CN II-XII intact, reflexes normal, other (Finger to nose intact, normal facial expressions,). Absent: motor sensory deficit Skin exam: Present: warm, dry, intact, normal color. Absent: rash Course Vital Signs 09/29/20 08:35 Temperature 97.3 F L Pulse Rate 118 H Respiratory 18 Rate Blood Pressure 148/77 O2 Sat by Pulse 100 Oximetry Medical Decision Making - Medical Decision Making Patient has left trapezius muscle spasm and tenderness patient has no neurological deficits patient has some reported paresthesias related to her arm told this may related to nerve impingement. Patient patient's is comfortable with discharge she states that she wants to go to a chiropractor which she is advised Dr. [employer] and chiropractor for minor with . Patient advised to return for any worsening change symptoms. Patient agrees to plan. Disposition Clinical Impression: Trapezius muscle spasm, Cervical radiculopathy Disposition: HOME SELF-CARE Condition: Stable Instructions (If sedation given, give patient instructions): Muscle Spasm (ED) Additional Instructions: Please return to the Emergency Department if symptoms worsen or any other concerns. Is patient prescribed a controlled substance at d/c from ED?: No Referrals: Jessy Beltrán MD [Primary Care Provider] - 1-2 days Time of Disposition: 09:21
== END 2020-09-29 09:31 | disposition home or self-care (01) ==
LOC: EC 08:33
DX: O99.891 Other specified diseases and conditions complicating pregnancy (principal); M54.12 Radiculopathy, cervical region; M62.830 Muscle spasm of back; M25.512 Pain in left shoulder; O99.332 Smoking (tobacco) complicating pregnancy, second trimester; F17.200 Nicotine dependence, unspecified, uncomplicated; Z3A.17 17 weeks gestation of pregnancy
CPT/HCPCS: 99283

== ENCOUNTER 2021-01-31 12:02 | Outpatient (CLI) | payer OTHER ==
[2021-01-31 13:35] LABS: Basophils % (A) 0 %; Eosinophils # (A) 0.5 k/uL (0-0.7); Eosinophils % (A) 4 %; HCT 37.7 % (34.0-46.0); Lymphocytes # (A) 2.1 k/uL (1.0-4.8); Lymphocytes % (A) 17 %; MCH 32.5 pg (25.0-35.0); MCHC 34.4 g/dL (31.0-37.0); MCV 94.3 fL (80.0-100.0); Mean Platelet Volume 8.4; Monocytes # (A) 0.7 k/uL (0-1.0); Monocytes % (A) 6 %; Neutrophils # (A) 8.8 k/uL (1.3-7.7); Neutrophils % (A) 71 %; Platelet Count 229 k/uL (150-450); RDW 13.3 % (11.5-15.5); WBC 12.4 k/uL (3.8-10.6)
[2021-01-31 13:45] LABS: ALT 13 U/L (4-34); AST 20 U/L (14-36); African American GFR (CKD) >90 (>60 ml/min/1.73 sqM); Blood Urea Nitrogen 5 mg/dL (7-17); LDH 365 U/L (313-618); Non-African American GFR(CKD) >90 (>60 ml/min/1.73 sqM); Uric Acid 3.5 mg/dL (3.7-7.4)
[2021-01-31 13:47] LABS: Creatinine,Urine Random 30.2 mg/dL; Protein/Creatinine Ratio,Urine 0.497
[2021-01-31 15:37] VITALS: BP 109/56; PULSE 80; RESP 16; TEMP 97.5
--- NOTE | 2021-02-01 06:31 | P.MSEPDOC ---
Presenting Problems - Arrival Data Date of Arrival on Unit: 01/31/21 Time of Arrival on Unit: 12:02 Mode of Transport: Ambulatory - Complaint OB-Reason for Admission/Chief Complaint: PIH, Elevated Blood Pressure Comment: admit for PIH eval per Dr Garza. Pt had one elevated BP in the office. Pt. reports + GDM on insulin. PT states vag delivery x5, last one at 36weeks Medical History - Information : 12 Para: 5 Number of Living Children: 5 - Gestational Age Gestational Age by IRIS (wks/days): 35 Weeks and 0 Days - History Complications: GDM, Prior Review of Systems - Review of Systems Constitutional: No problems Breast: No problems ENT: No problems Cardiovascular: No problems Respiratory: No problems Gastrointestinal: No problems Genitourinary: No problems Musculoskeletal: No problems Neurological: No problems Skin: No problems Vital Signs - Temperature Temperature: 97.5 F Temperature Source: Temporal Artery Scan - Pulse Right Pulse Rate: 80 Pulse Assessment Method: Automatic Cuff - Respirations Respiratory Rate: 16 Oxygen Delivery Method: Room Air O2 Sat by Pulse Oximetry: 98 - Blood Pressure Right Arm Blood Pressure: 109/56 Blood Pressure Mean: 73 Blood Pressure Source: Automatic Cuff Medical Screen Scoring - Uterine Contractions Frequency From (mins): 0 Frequency To (mins): 0 Duration From (seconds): 0 - Assessment - Baby A Baseline FHR: 125 Heart Rate - NICHD Category: Category I (Normal) Physician Notification - Physician Notified Physician Notified Date: 01/31/21 Physician Notified Time: 14:10 Physician: Dr Garza New Order Received: Yes - Notification Comment Comment: BPs and all lab results reported to Dr Garza including protein/creat ratio. orders to discharge pt home with inctructions to obtain 24 hour urine spec and return to [facility] lab tomorrow Maternal Triage Index - Maternal Triage Index Presenting for scheduled procedure w/no complaint: No - Stat/Priority 1 Stat Priority 1: No - Urgent/Priority 2 Urgent Priority 2: No - Prompt/Priority 3 Prompt Priority 3: No - Non-Urgent/Priority 4 Non-Urgent Priority 4: Yes Criteria Met for Priority 4: admit for PIH eval per Dr Garza. Pt had one elevated BP in the office. Pt. reports + GDM on insulin. PT states vag delivery x5, last one at 36weeks Disposition - Disposition OB Disposition: Discharge to home Discharge Date: 01/31/21 Discharge Time: 14:15 I agree with the RN Medical Screening Exam: Yes Case reviewed; plan agreed upon as documented in EMR&OBIX.: Yes Diagnosis: GESTATIONAL HTN W/O SIGNIFICANT PROTEINURIA, THIRD TRIMESTER
== END 2021-01-31 14:15 | disposition home or self-care (01) ==
LOC: FBPOP 12:02
PROVIDERS: ATTEND Obstetrics & Gynecology
DX: O13.3 Gestational [pregnancy-induced] hypertension without significant proteinuria, third trimester (principal); O24.419 Gestational diabetes mellitus in pregnancy, unspecified control; Z3A.35 35 weeks gestation of pregnancy; Z88.2 Allergy status to sulfonamides; Z88.8 Allergy status to other drugs, medicaments and biological substances; Z88.9 Allergy status to unspecified drugs, medicaments and biological substances
CPT/HCPCS: 59025; 82239; 82570; 84156; 82565; 83615; 84450; 84460; 84520; 84550; 85025; G0463; 99215

== ENCOUNTER 2021-02-28 05:43 | Inpatient (IN) | payer OTHER ==
[2021-02-28] MEDS ORDERED: METHYLERGONOVINE 0.2 MG/ML 1 ML AMP IM PRN (05:58)
[2021-02-28] MEDS ORDERED: OXYTOCIN 30 UNITS/500 ML NS 30 UNIT in SALINE 1 500ML.BAG IV SCH ×2 (05:58→13:46)
[2021-02-28] MEDS ORDERED: LIDOCAINE 0.5% (PF) 5 MG/ML (50 ML SDV) SQ PRN (05:58)
[2021-02-28] MEDS ORDERED: LACTATED RINGERS 1,000 ML IV SCH (05:58)
[2021-02-28] MEDS ORDERED: CARBOPROST TROMETHAMINE 250 MCG/ML 1 ML AMP IM PRN (05:58)
[2021-02-28] MEDS ORDERED: OXYTOCIN 10 UNIT/ML 1 ML VIAL IM PRN (05:58)
[2021-02-28] MEDS ORDERED: TERBUTALINE 1 MG/ML VIAL SQ PRN (05:58)
--- NOTE | 2021-02-28 06:17 | P.HPOB ---
History of Present Illness H&P Date: 02/28/21 Chief Complaint: Gestational diabetes, induction of labor This patient is a pleasant 35-year-old 13 para 5 female estimated date of confinement 03/07/2021 estimated gestational age 39 weeks who presents to labor and delivery for induction of labor secondary to insulin-dependent gestational diabetes. Patient's care has been complicated by the diabetes however she's had good control on insulin and is managed by Dr. Sumner. Patient does have a history of cholestasis with a prior however no evidence this . Patient also has been on a baby aspirin secondary to increased risk of preeclampsia. Patient had 1 episode of elevated blood pre ssure earlier in the however evaluation that time was negative. Patient now presents for delivery Review of Systems Genitourinary: Reports Menstruation: Reports amenorrhea Past Medical History Past Medical History: No Reported History Additional Past Medical History / Comment(s): Gestational diabetes, cholestasis of . MTHFR gene mutation History of Any Multi-Drug Resistant Organisms: None Reported Past Surgical History: No Surgical Hx Reported Past Anesthesia/Blood Transfusion Reactions: No Reported Reaction Past Psychological History: No Psychological Hx Reported Smoking Status: Current every day smoker Past Alcohol Use History: None Reported Past Drug Use History: None Reported - Past Family History Mother Family Medical History: No Reported History Medications and Allergies Home Medications Medication Instructions Recorded Confirmed Type Pnv,Calcium 72/Iron/Folic Acid 1 each PO DAILY 08/24/15 01/31/21 History [ Plus Tablet] Insulin Detemir [Levemir Flextouch 50 unit SQ QAM 01/31/21 01/31/21 History Pen] Insulin NPH/Reg Insulin 70/30 50 unit SQ AC-SUPPER 01/31/21 01/31/21 History [humuLIN 70/30 VIAL] Allergies Allergy/AdvReac Type Severity Reaction Status Date / Time insulin aspart Allergy Rash/Hives Verified 02/28/21 05:58 [From Novolog Mix 70-30 U-100 Insuln] insulin aspart protamine Allergy Rash/Hives Verified 02/28/21 05:58 human [From Novolog Mix 70-30 U-100 Insuln] nickel Allergy Rash/Hives Verified 02/28/21 05:58 sulfamethoxazole Allergy Rash/Hives Verified 02/28/21 05:58 [From Bactrim] Exam Intake and Output 10/02/27/21 02/28/21 14:59 22:59 06:59 Other: Weight 92.533 kg - OBG Physical Exam Abdomen: bowel sounds normal, no diffuse tenderness, no bruit present, no guarding noted, no hepatomegaly, no splenomegaly, no mass Vulva: both: normal Vagina: normal moisture, no discharge Cervix: no lesion (Cervix is 2-3 cm dilated 50% effaced and -2 station.), no discharge Uterus: enlarged Results blood work shows she is O positive, rubella immune, RPR nonreactive, hepatitis B negative, group B strep was negative, Glucola was abnormal and an abnormal 3 hour gtt., ultrasounds showing the baby to be at the 25th percentile with normal anatomy. Assessment and Plan Assessment: This is a pleasant 35-year-old 13 para 5 female 39-0/7 weeks gestation who is admitted to labor and delivery for induction of labor secondary to in sulin-dependent gestational diabetes. Plan is induction of labor and anticipate vaginal delivery. (1) 39 weeks gestation of Current Visit: Yes Status: Acute Code(s): Z3A.39 - 39 WEEKS GESTATION OF SNOMED Code(s): 19733223 (2) Elective induction of labor planned Current Visit: Yes Status: Acute Code(s): QNE1984 - SNOMED Code(s): 39029 3005 (3) Insulin dependent gestational diabetes mellitus (GDM), antepartum Current Visit: No Status: Acute Code(s): O24.419 - GESTATIONAL DIABETES MELLITUS IN , UNSP CONTROL; Z79.4 - ANTIQUE REFINISHER (CURRENT) USE OF INSULIN SNOMED Code(s): 49571754
[2021-02-28 06:21] LABS: Glucose,Whole Blood 91 mg/dL (75-99)
[2021-02-28 06:51] LABS: Basophils # (A) 0.1 k/uL (0-0.2); Basophils % (A) 1 %; Eosinophils # (A) 0.6 k/uL (0-0.7); Eosinophils % (A) 4 %; HCT 40.3 % (34.0-46.0); HGB 13.9 gm/dL (11.4-16.0); Lymphocytes # (A) 3.2 k/uL (1.0-4.8); Lymphocytes % (A) 24 %; MCH 32.6 pg (25.0-35.0); MCHC 34.6 g/dL (31.0-37.0); MCV 94.1 fL (80.0-100.0); Mean Platelet Volume 8.9; Monocytes # (A) 0.8 k/uL (0-1.0); Monocytes % (A) 6 %; Neutrophils # (A) 8.6 k/uL (1.3-7.7); Neutrophils % (A) 64 %; Platelet Count 212 k/uL (150-450); RBC 4.28 m/uL (3.80-5.40); RDW 13.3 % (11.5-15.5); WBC 13.5 k/uL (3.8-10.6)
[2021-02-28 07:58] LABS: Glucose,Whole Blood 95 mg/dL (75-99)
[2021-02-28 09:07] LABS: Glucose,Whole Blood 92 mg/dL (75-99)
[2021-02-28 10:11] LABS: Glucose,Whole Blood 91 mg/dL (75-99)
[2021-02-28 11:29] LABS: Glucose,Whole Blood 93 mg/dL (75-99)
[2021-02-28] MEDS ORDERED: HYDROCORTISONE 2.5% RECTAL CREAM 30 GM TUBE RECTAL PRN (13:46)
[2021-02-28] MEDS ORDERED: ZOLPIDEM 5 MG TAB PO PRN (13:46)
[2021-02-28] MEDS ORDERED: SIMETHICONE 80 MG CHEWABLE PO PRN (13:46)
[2021-02-28] MEDS ORDERED: LANOLIN CREAM 5 GM TUBE TOPICAL PRN (13:46)
[2021-02-28] MEDS ORDERED: IBUPROFEN 600 MG TAB PO PRN (13:46)
[2021-02-28] MEDS ORDERED: ACETAMINOPHEN TAB 325 MG TAB PO PRN (13:46)
[2021-02-28] MEDS ORDERED: diphenhydrAMINE 25 MG CAP PO PRN (13:46)
[2021-02-28] MEDS ORDERED: diphenhydrAMINE 50 MG/ML 1 ML VIAL IVP PRN (13:46)
[2021-02-28] MEDS ORDERED: bisacodyL 10 MG SUPP RECTAL PRN (13:46)
[2021-02-28] MEDS ORDERED: BENZOCAINE/MENTHOL SPRAY 1 GM/SPRAY AEROSOL TOPICAL PRN (13:46)
--- NOTE | 2021-02-28 18:34 | P.PROBDLV ---
Vaginal Delivery Note - . Vaginal Delivery Note: Normal vaginal delivery viable female Apgars 9 and 9 delivery time is 1323 hrs. Please see dictated H&P for intimate details of this patient's admission. Brief summary this is a pleasant 35-year-old 13 para 5 female estimated gestational age 39-0/7 weeks who presents to labor and delivery for induction secondary to insulin-dependent gestational diabetes. On admission patient is 2- 3 cm dilated has artificial rupture membranes for clear fluid. Labor is augmented with Pitocin. Patient does not request anything for pain control. Patient does progress quickly gets to complete. Pushes the head to the perineum and the posterior perineum is supported. We then have controlled delivery of 's head over the intact perineum. Infant's position is straight occiput anterior presentation. Mouth and nares are bulb suctioned. Patient continues to push uncontrollably and delivers a rest this infant's body. This is a vigorous viable female infant. There is a loose double nuchal cord which is easily reduced. The infant is late on the mother's abdomen the umbilical cord is doubly clamped and cut after is done pulsating. Cord blood is obtained. The placenta is then spontaneously delivered intact. Estimated blood loss is approximately 100 mL. There are no lacerations and no repair. Infant and mother are stable delivery room.
[2021-02-28] MEDS: SENNOSIDES-DOCUSATE SODIUM 1 EACH TAB PO PRN (20:56)
--- NOTE | 2021-03-01 05:42 | P.PNOBGVD ---
Subjective - Subjective Patient reports: Reports appetite normal, Reports voiding normally, Reports pain well controlled, Reports ambulating normally : doing well Objective - Latest Vital Signs Latest vital signs: Vital Signs Temp Pulse Resp BP Pulse Ox 03/01/21 00:05 97.9 F 78 16 118/77 95 02/28/21 20:45 98.1 F 73 16 114/61 97 02/28/21 16:00 74 16 113/56 02/28/21 15:55 74 16 113/56 02/28/21 15:23 97.9 F 75 16 113/63 02/28/21 14:55 74 16 113/70 02/28/21 14:40 86 16 112/73 02/28/21 14:25 97.9 F 85 16 119/66 02/28/21 14:10 88 16 108/59 02/28/21 13:55 79 16 122/69 02/28/21 05:57 96.8 F L 115 H 16 134/80 Intake and Output 02/28/21 02/28/21 03/01/21 14:59 22:59 06:59 Intake Total 100 Output Total 700 Balance -600 Intake: Oral 100 Output: Urine 700 Other: # Voids 1 - Exam Lungs: bilateral: normal Chest: Normal S1, Normal S2 Extremities: Present: normal Abdomen: Present: normal appearance, soft Uterus: Present: normal, firm - Labs Labs: Abnormal Lab Results - Last 24 Hours (Table) 02/28/21 Range/Units 06:10 WBC 13.5 H (3.8-10.6) k/uL Neutrophils # 8.6 H (1.3-7.7) k/uL Assessment and Plan Assessment: day #1. Patient is resting without complaints and wishes to go home. Vital signs are stable and she is afebrile. Uterus is firm nontender and she is having normal lochia. My impression this is a normal course. Plan is to continue routine care discharge home later today. (1) 39 weeks gestation of Current Visit: Yes Status: Acute Code(s): Z3A.39 - 39 WEEKS GESTATION OF SNOMED Code(s): 55099466 (2) Elective induction of labor planned Current Visit: Yes Status: Acute Code(s): CAT1275 - SNOMED Code(s): 348540442 (3) Insulin dependent gestational diabetes mellitus (GDM), antepartum Current Visit: No Status: Acute Code(s): O24.419 - GESTATIONAL DIABETES MELLITUS IN , UNSP CONTROL; Z79.4 - ALF (CURRENT) USE OF INSULIN SNOMED Code(s): 33815165
--- NOTE | 2021-03-01 05:49 | P.DS ---
Providers Date of admission: 02/28/21 05:43 Expected date of discharge: 03/01/21 Attending physician: Woo Garza Primary care physician: Jessy Beltrán - Discharge Diagnosis(es) (1) 39 weeks gestation of Current Visit: Yes Status: Acute (2) Elective induction of labor planned Current Visit: Yes Status: Acute (3) Insulin dependent gestational diabetes mellitus (GDM), antepartum Current Visit: No Status: Acute Hospital Course: Please see dictated H&P and delivery note on this patient's admission. In brief summary this is a pleasant 35-year-old 13 para 5 female 39 weeks gestation admitted to labor and delivery for induction of labor secondary to insulin-dependent gestational diabetes. Patient has induction of labor quickly goes on to have a vaginal delivery viable female . Please see dictated delivery note. day #1 patient is doing well wishes to go home. Patient's felt to discharge home follow up with me in 6 weeks. Procedures: Induction of labor and normal vaginal delivery Patient Condition at Discharge: Good Plan - Discharge Summary Discharge Rx Participant: No New Discharge Prescriptions: New Ibuprofen [Motrin] 600 mg PO Q6HR PRN #30 tab PRN Reason: Mild Pain (Scale 1 To 3) No Action Pnv,Calcium 72/Iron/Folic Acid [ Plus Tablet] 1 each PO DAILY Insulin Detemir [Levemir Flextouch Pen] 50 unit SQ QAM Insulin NPH/Reg Insulin 70/30 [humuLIN 70/30 VIAL] 50 unit SQ AC-SUPPER Discharge Medication List Pnv,Calcium 72/Iron/Folic Acid [ Plus Tablet] 1 each PO DAILY 08/24/15 [History] Insulin Detemir [Levemir Flextouch Pen] 50 unit SQ QAM 01/31/21 [History] Insulin NPH/Reg Insulin 70/30 [humuLIN 70/30 VIAL] 50 unit SQ AC-SUPPER 01/31/21 [History] Ibuprofen [Motrin] 600 mg PO Q6HR PRN #30 tab 03/01/21 [Rx] Follow up Appointment(s)/Referral(s): Woo Garza MD [STAFF PHYSICIAN] - 04/11/21 11:15 am Patient Instructions/Handouts: Vaginal Delivery (DC) Activity/Diet/Wound Care/Special Instructions: No intercourse or anything per vagina for 6 weeks. Please call if any fever, chills, excessive vaginal bleeding, and/or abdominal pain. Discharge Disposition: HOME SELF-CARE
[2021-03-01] MEDS: SENNOSIDES-DOCUSATE SODIUM 1 EACH TAB PO PRN (07:31)
[2021-03-01 07:48] VITALS: RESP 18
[2021-03-01 11:26] VITALS: BP 104/61; PULSE 60; TEMP 98.3
== END 2021-03-01 14:12 | disposition home or self-care (01) | DRG 807 ==
LOC: 4FBP 05:43
PROVIDERS: ADMIT Obstetrics & Gynecology; ATTEND Obstetrics & Gynecology
PROC: 10907ZC Drainage of Amniotic Fluid, Therapeutic from Products of Conception, Via Natural or Artificial Opening (ICD-10-PCS; principal; 2021-02-28)
PROC: 10E0XZZ Delivery of Products of Conception, External Approach (ICD-10-PCS; 2021-02-28)
PROC: 3E033VJ Introduction of Other Hormone into Peripheral Vein, Percutaneous Approach (ICD-10-PCS; 2021-02-28)
DX: O24.424 Gestational diabetes mellitus in childbirth, insulin controlled (principal); Z37.0 Single live birth; O69.81X0 Labor and delivery complicated by cord around neck, without compression, not applicable or unspecified; Z3A.39 39 weeks gestation of pregnancy; O99.334 Smoking (tobacco) complicating childbirth; F17.200 Nicotine dependence, unspecified, uncomplicated
CPT/HCPCS: 83036; 85025; 86850; 86900; 86901; 88307

== ENCOUNTER → 2021-04-28 | Outpatient (CLI) | payer OTHER ==
--- NOTE | 2021-04-28 09:09 | XR ---
EXAMINATION TYPE: XR cervical spine comp DATE OF EXAM: 04/28/2021 CLINICAL HISTORY: pain COMPARISON: NONE TECHNIQUE: Frontal, lateral, oblique, swimmers, and open mouth view of the cervical spine are obtaine d. FINDINGS: The cervical spine is visualized in its entirety from C1 thru the top of T1 level. Reversa l of the normal cervical lordosis which can be seen in patients with muscle spasticity. No evidence o f acute fracture or dislocation. The pre-vertebral soft tissue appears within normal limits. Disc sp aces are well preserved. The C1-C2 articulation is unremarkable on the open mouth view. The oblique images are within normal limits. IMPRESSION: Reversal of the normal cervical lordosis which can be seen in patients with muscle spast icity.
--- NOTE | 2021-04-28 09:11 | NM ---
EXAMINATION TYPE: NM hepatobiliary w EF DATE OF EXAM: 04/28/2021 COMPARISON: NONE HISTORY: Right upper quadrant pain TECHNIQUE: After the intravenous administration of 3.9 mCi Tc 99m Mebrofenin hepatobiliary scintigrap hy is performed. Immediate images post injection. FINDINGS: There is satisfactory initial accumulation of tracer by the liver. The gallbladder is visualized wit hin 8 minutes. The small bowel activity is noted within 22 minutes. At one hour 8 ounces of oral en sure plus is given to mimic CCK and gallbladder ejection fraction is calculated at 69 %, in the dayanna l range. Therefore there is no scintigraphic evidence of cystic or common bile duct obstruction to s uggest acute cholecystitis or gallbladder dyskinesia. IMPRESSION: Exam is within normal limits.
== END | disposition home or self-care (01) ==
LOC: RADNMMAIN 06:45
PROVIDERS: ATTEND Family Medicine
DX: R10.11 Right upper quadrant pain (principal); M54.2 Cervicalgia
CPT/HCPCS: 72050; 78226; A9537

== ENCOUNTER → 2021-05-30 | Outpatient (CLI) | payer OTHER ==
--- NOTE | 2021-05-30 21:55 | MR ---
MRI CERVICAL SPINE: CLINICAL HISTORY: Radiculopathy. Neck pain causing left arm numbness for 6 months. TECHNIQUE: Multiplanar, multisequence imaging of the cervical spine is performed without IV contrast. COMPARISON: Cervical spine x-ray April 28, 2021. FINDINGS: Sagittal images of the cervical spine show the craniocervical junction to appear within nor mal limits. The cervical and upper thoracic spinal cord is normal in caliber and signal. Vertebral alignment remain satisfactory on the coronal images. Sagittal images show reversal of normal cervical curvature centered at C4-C5 levels. The vertebral body and intravertebral disk heights remain normal . The bone marrow signal intensity is within normal limits. Axial images show show central disc protrusion at C2-C3 level on axial image 50 effacing anterior the jyothi sac, this is less well seen on sagittal images.. Bilateral neural foramina. Axial images at C3-C4 level show a broad based left paracentral disc protrusion effacing anterior the jyothi sac nearly up to ventral surface of spinal cord, patent bilateral neural foramina. Axial images at C4-C5 level left paracentral disc protrusion effacing the anterior thecal sac nearly up to ventral surface of spinal cord, the bilateral neural foramina are patent. Axial images at C5-C6 level show broad-based right paracentral disc protrusion minimally effacing ant erior thecal sac, patent bilateral neural foramina. Axial images at C6-C7 and C7-T1 levels appear within normal limits IMPRESSION: Reversal of normal cervical curvature with disc herniations C3-C4 through C5-C6 level not ed as detailed above.
== END | disposition home or self-care (01) ==
LOC: RADMRIMAIN 15:31
PROVIDERS: ATTEND Nurse Practitioner Adult Health
DX: M50.23 Other cervical disc displacement, cervicothoracic region (principal); M50.222 Other cervical disc displacement at C5-C6 level; M54.12 Radiculopathy, cervical region
CPT/HCPCS: 72141

== ENCOUNTER → 2021-07-23 | Outpatient (CLI) | payer OTHER ==
--- NOTE | 2021-07-23 16:15 | MR ---
EXAMINATION TYPE: MR cervical spine wo con DATE OF EXAM: 07/23/2021 COMPARISON: 05/30/2021 HISTORY: Neck pain, left arm numbness. Multiplanar multiecho imaging of the cervical spine without contrast. There is mild straightening of the vertebra. Disc spaces are fairly normal. There is a small posterio r disc bulge at C4-5. There is developmentally adequate spinal canal. No spinal stenosis. Cervical sp inal cord has normal signal pattern. There is no edema. Spinal canal measures 8 mm at C4-5 which is t he narrowest point. There is also a mild posterior disc bulge at C3-4 and C6-7. No evidence of focal bone destruction. Brainstem is intact. IMPRESSION: Posterior C4-5 disc herniation without significant change. No significant narrowing of the spinal can al. No fracture. Disc herniation at C4-5 extends slightly to the left side and could be of some clini jyothi significance in this patient with left side symptoms. This appears unchanged compared to old exam .
== END | disposition home or self-care (01) ==
LOC: RADMRIMAIN 13:30
PROVIDERS: ATTEND Neurological Surgery
DX: M50.021 Cervical disc disorder at C4-C5 level with myelopathy (principal)
CPT/HCPCS: 72141

== ENCOUNTER → 2022-01-13 | Outpatient (CLI) | payer OTHER ==
--- NOTE | 2022-01-14 08:04 | XR ---
EXAMINATION TYPE: XR cervical spine w flex/ext DATE OF EXAM: 01/13/2022 COMPARISON: NONE HISTORY: 36-year-old female M50.81, 4 months postop evaluation. TECHNIQUE: 7 views including flexion and extension FINDINGS: Also unchanged with interval placement of C3-C5 ACDF hardware. No predental space widening or prevert ebral soft tissue swelling. There is straightening of the normal cervical lordosis. Some mild facet a rthropathy suggested in the lower cervical spine. There is no dynamic subluxation with either flexion or extension. No significant bony neuroforaminal narrowing on either side. IMPRESSION: Status post C3-C5 ACDF. No malalignment or evidence for dynamic subluxation. Reversal of the normal c ervical lordosis could be positional or due to muscle spasm.
== END | disposition home or self-care (01) ==
LOC: RADMRIMAIN 17:33
PROVIDERS: ATTEND Neurological Surgery
DX: M50.81 Other cervical disc disorders, high cervical region (principal)
CPT/HCPCS: 72052

== ENCOUNTER → 2022-03-04 | Outpatient (CLI) | payer OTHER ==
[2022-03-05 03:55] LABS: Basophils # (A) 0.1 k/uL (0-0.2); Basophils % (A) 1 %; Eosinophils # (A) 0.8 k/uL (0-0.7); Eosinophils % (A) 11 %; HCT 42.9 % (34.0-46.0); HGB 14.7 gm/dL (11.4-16.0); Lymphocytes # (A) 2.6 k/uL (1.0-4.8); Lymphocytes % (A) 33 %; MCH 31.8 pg (25.0-35.0); MCHC 34.3 g/dL (31.0-37.0); Mean Platelet Volume 9.4; Monocytes # (A) 0.5 k/uL (0-1.0); Monocytes % (A) 6 %; Neutrophils # (A) 3.7 k/uL (1.3-7.7); Neutrophils % (A) 47 %; Platelet Count 290 k/uL (150-450); RBC 4.61 m/uL (3.80-5.40); RDW 11.8 % (11.5-15.5); WBC 7.8 k/uL (3.8-10.6)
[2022-03-05 09:41] LABS: % Iron Saturation 27.12 (12.00-45.00); ALT 17 U/L (8-44); AST 15 U/L (13-35); African American GFR (CKD) 112.2 (60.0-200.0); Albumin 4.6 g/dL (3.8-4.9); Albumin/Globulin Ratio 2.14 (1.60-3.17); Alkaline Phosphatase 68 U/L (41-126); BUN/Creat Ratio 13.65 Ratio (12.00-20.00); Blood Urea Nitrogen 10.8 mg/dL (9.0-27.0); Calcium 9.7 mg/dL (8.7-10.3); Carbon Dioxide 27.5 mmol/L (20.0-27.5); Chloride 102 mmol/L (96-109); Chol/HDL Ratio 3.52 Ratio; Globulin 2.1 g/dL (1.6-3.3); Glucose 98 mg/dL (70-110); Iron 112 ug/dL (50-170); LDL Cholesterol,Calculated 124.5 mg/dL (0.0-131.0); Magnesium 2.1 mg/dL (1.5-2.4); Non-African American GFR(CKD) 96.8 (60.0-200.0); Potassium 4.5 mmol/L (3.5-5.5); Sodium 138 mmol/L (135-145); Total Iron Binding Capacity 413 ug/dL (228-460); Total Protein 6.7 g/dL (6.2-8.2)
== END | disposition home or self-care (01) ==
LOC: LABWHC1 11:27
PROVIDERS: ATTEND Internal Medicine
DX: M50.90 Cervical disc disorder, unspecified, unspecified cervical region (principal); R20.0 Anesthesia of skin
CPT/HCPCS: 36415; 80053; 80061; 82306; 82607; 82746; 83540; 83550; 83735; 84443; 85025

== ENCOUNTER → 2023-04-28 | Outpatient (CLI) | payer OTHER ==
[2023-04-28 13:42] LABS: Basophils # (A) 0.14 X 10*3/uL (0.00-0.10); Basophils % (A) 1.5 %; Eosinophils # (A) 1.75 X 10*3/uL (0.04-0.35); HCT 41.6 % (37.2-46.3); HGB 13.2 g/dL (12.0-15.0); Lymphocytes # (A) 2.78 X 10*3/uL (0.90-5.00); Lymphocytes % (A) 30.2 %; MCH 28.3 pg (27.0-32.0); MCHC 31.7 g/dL (32.0-37.0); MCV 89.3 FL (80.0-97.0); Mean Platelet Volume 10.1 FL (9.5-12.2); Monocytes # (A) 0.77 X 10*3/uL (0.20-1.00); Monocytes % (A) 8.4 %; NRBC Per 100 WBC 0 X 10*3/uL (0.00-0.01); Neutrophils # (A) 3.73 X 10*3/uL (1.80-7.70); Neutrophils % (A) 40.5 %; Platelet Count 323 X 10*3/uL (140-440); RBC 4.66 X 10*6/uL (4.10-5.20); RDW 12.7 % (11.5-14.5); WBC 9.21 X 10*3/uL (4.50-10.00)
[2023-04-28 13:54] LABS: Chol/HDL Ratio 3.43 Ratio; Lipase 34 U/L (14-63); VLDL Calculation 17.32 mg/dL (5.00-40.00)
[2023-04-28 13:55] LABS: ALT 519 U/L (8-44); AST 203 U/L (13-35); Albumin 4.6 g/dL (3.8-4.9); Albumin/Globulin Ratio 1.77 Ratio (1.60-3.17); Alkaline Phosphatase 150 U/L (41-126); Bilirubin, Conjugated <0.20 mg/dL (0.20-0.40); Bilirubin,Unconjugated >0.30 mg/dL (0.20-1.00); Blood Urea Nitrogen 8.1 mg/dL (9.0-27.0); Calcium 9.8 mg/dL (8.7-10.3); Carbon Dioxide 24.1 mmol/L (21.6-31.8); Chloride 104 mmol/L (96-109); Globulin 2.6 g/dL (1.6-3.3); Glucose 99 mg/dL (70-110); LDL Cholesterol,Calculated 135.8 mg/dL (0.0-131.0); Potassium 3.7 mmol/L (3.5-5.5); Sodium 140 mmol/L (135-145); Total Bilirubin 0.5 mg/dL (0.3-1.2); Total Protein 7.2 g/dL (6.2-8.2)
== END | disposition home or self-care (01) ==
LOC: LABWHC1 08:53
PROVIDERS: ATTEND Internal Medicine
DX: Z00.00 Encounter for general adult medical examination without abnormal findings (principal); K21.9 Gastro-esophageal reflux disease without esophagitis
CPT/HCPCS: 36415; 80053; 80061; 82248; 83690; 84443; 85025

== ENCOUNTER → 2023-05-01 | Outpatient (CLI) | payer OTHER ==
--- NOTE | 2023-05-01 11:43 | US ---
EXAMINATION TYPE: US abdomen complete DATE OF EXAM: 05/01/2023 COMPARISON: NONE CLINICAL INDICATION: Female, 38 years old with history of K21.9 GASTRO-ESOPHAGEAL REFLUX DISEASE WITH OUT ESO; Elevated liver enzymes; Abdomen pain at night x 2 years with nausea; Hx GDM TECHNIQUE: Multiple sonographic images of the abdomen are obtained. FINDINGS: EXAM MEASUREMENTS: Liver Length: 13.0 cm Gallbladder Wall: 0.2 cm CBD: 0.4 cm Spleen: 11.1 cm Right Kidney: 11.5 x 4.6 x 4.9 cm Left Kidney: 10.8 x 5.7 x 5.9 cm DIRECTOR OF PARKS AND RECREATION NOTES: Difficult exam due to extensive bowel gas Pancreas: Tail obscured by overlying bowel gas Liver: Mild attenuation compatible with mild fatty infiltration Gallbladder: Stones seen. No gallbladder wall thickening or pericholecystic fluid is evident. Evidence for sonographic Trimble's sign: Yes CBD: wnl Spleen: wnl Right Kidney: wnl Left Kidney: wnl Upper IVC: wnl Abd Aorta: wnl IMPRESSION: 1. Mild fatty infiltration liver. 2. Cholelithiasis is present. There is a positive Trimble's sign which has a high correlation with acu te cholecystitis. Clinical Correlation recommended.
== END | disposition home or self-care (01) ==
LOC: RADUSWWP 10:41
PROVIDERS: ATTEND Internal Medicine
DX: K80.20 Calculus of gallbladder without cholecystitis without obstruction (principal); K76.0 Fatty (change of) liver, not elsewhere classified; K21.9 Gastro-esophageal reflux disease without esophagitis
CPT/HCPCS: 76700

== ENCOUNTER → 2023-05-10 | Outpatient (CLI) | payer OTHER ==
--- NOTE | 2023-05-10 18:22 | NM ---
EXAMINATION TYPE: NM hepatobiliary w EF DATE OF EXAM: 05/10/2023 COMPARISON: NONE INDICATION: Cholecystitis, pain TECHNIQUE: After the intravenous administration of 5.15 mCi Tc 99m Mebrofenin hepatobiliary scintigra phy is performed. Images were obtained immediately post injection. FINDINGS: There is prompt uptake and excretion of radiotracer by the liver. Extrahepatic ducts are identified at 12 minutes. The gallbladder is visualized within 8 minutes. Small bowel activity is noted within 14 minutes. At one hour 8 ounces of oral ensure plus is given to mimic CCK and gallbladder ejection fraction is c alculated at 55 %, which is in the normal range. (Normal >35% and <80%.). IMPRESSION: 1. No acute abnormality. No biliary obstruction evident.
== END | disposition home or self-care (01) ==
LOC: RADNMMAIN 12:46
PROVIDERS: ATTEND Internal Medicine
DX: K80.00 Calculus of gallbladder with acute cholecystitis without obstruction (principal)
CPT/HCPCS: 78226; A9537